=== PATIENT | female | born 1970 | race Hispanic/Latino ===

== ENCOUNTER 2018-04-03 15:03 | Outpatient (CLI) | payer OTHER | END 2018-04-03 15:04 | disposition home or self-care (01) | LOC: BICMAMMO 15:03 | PROVIDERS: ATTEND Family Medicine | DX: Z12.31 Encounter for screening mammogram for malignant neoplasm of breast (principal); R92.1 Mammographic calcification found on diagnostic imaging of breast; Z80.3 Family history of malignant neoplasm of breast | CPT/HCPCS: 77063; 77067 ==

== ENCOUNTER 2018-04-06 10:28 | Outpatient (CLI) | payer OTHER | END 2018-04-06 10:29 | disposition home or self-care (01) | LOC: BICMAMMO 10:28 | PROVIDERS: ATTEND Family Medicine | DX: R92.1 Mammographic calcification found on diagnostic imaging of breast (principal); Z80.3 Family history of malignant neoplasm of breast | CPT/HCPCS: G0279 ==

== ENCOUNTER 2020-12-08 12:58 | Observation (INO) | payer OTHER, SELFPAY ==
[2020-12-08 13:20] LABS: #Basophils 0.1 thou/uL (0.0-0.2); #Eosinphils 0.3 thou/uL (0.0-0.7); #Lymphocytes 2.5 thou/uL (1.20-3.40); #Monocytes 0.4 thou/uL (0.11-0.59); %Basophils 1.1 % (0.0-1.0); %Eosinophils 4.5 % (0.0-10.0); %Lymphocytes 40.2 % (21.0-51.0); %Monocytes 6.3 % (0.0-10.0); %Neutrophils 47.9 % (42.0-75.0); Hemoglobin 11.6 g/dL (12.0-16.0); Mean Corpuscular HGB CONC 32.1 g/dL (32.0-36.0); Mean Corpuscular Volume 87.2 fL (78.0-98.0); Mean Platelet Volume 7.9 fL (7.4-10.4); Platelet Count 261 thou/uL (130-400); RBC Distribution Width 12.6 % (11.5-14.5); Red Blood Cell (RBC) Count 4.14 mill/uL (4.20-5.40); White Blood Cell (WBC) Count 6.2 thou/uL (4.8-10.8)
[2020-12-08 13:26] LABS: PTT 27.6 sec (22.9-36.1)
[2020-12-08 13:28] LABS: Prothrombin Time 13.9 sec (12.0-14.7)
[2020-12-08 13:49] LABS: ALT (SGPT) 15 U/L (8-55); AST (SGOT) 24 U/L (5-34); Albumin 3.9 g/dL (3.5-5.0); Alkaline Phosphatase 49 U/L (40-110); Anion Gap 12 mmol/L (10-20); BUN (Urea Nitrogen) 9 mg/dL (9.8-20.1); Bilirubin, Total 0.5 mg/dL (0.2-1.2); CK (CPK) 153 U/L (29-168); Calc. Creatinine Clearance 0 mL/min (70-130); Calcium 9.2 mg/dL (7.8-10.44); Carbon Dioxide 25 mmol/L (22-29); Chloride 104 mmol/L (98-107); Globulin 3.2 g/dL (2.4-3.5); Glucose 104 mg/dL (70-105); Potassium 3.7 mmol/L (3.5-5.1); Protein, Total 7.1 g/dL (6.0-8.3); Sodium 137 mmol/L (136-145)
[2020-12-08] MEDS ORDERED: Aspirin Chewable 81 MG TAB ONE (15:34)
[2020-12-08] MEDS ORDERED: Ondansetron PF 4 MG/2 ML Vial IVP PRN (17:45)
[2020-12-08] MEDS ORDERED: Acetaminophen 325 MG TAB PO PRN (17:45)
[2020-12-08] MEDS ORDERED: Ondansetron ODT 4 MG TAB SL PRN (17:45)
[2020-12-08] MEDS ORDERED: hydrALAZINE 20 MG/ML VIAL SLOW IVP PRN (18:14)
[2020-12-08] MEDS ORDERED: Labetalol HCl 100 MG/20 ML VIAL SLOW IVP PRN (18:14)
[2020-12-08 19:29] VITALS: BMI 24.1
[2020-12-08] MEDS ORDERED: Atorvastatin Calcium 40 MG TAB PO SCH (21:00)
[2020-12-09 05:31] LABS: #Basophils 0.1 thou/uL (0.0-0.2); #Eosinphils 0.3 thou/uL (0.0-0.7); #Lymphocytes 1.8 thou/uL (1.20-3.40); #Monocytes 0.5 thou/uL (0.11-0.59); #Neutrophils 3.2 thou/uL (1.40-6.50); %Eosinophils 5.7 % (0.0-10.0); %Lymphocytes 31.1 % (21.0-51.0); %Monocytes 8.9 % (0.0-10.0); %Neutrophils 53.3 % (42.0-75.0); Hemoglobin 11.4 g/dL (12.0-16.0); Hemoglobin A1c 5.6 % (4.0-6.0); Mean Corpuscular HGB CONC 32.1 g/dL (32.0-36.0); Mean Corpuscular Hemoglobin 28.1 pg (27.0-31.0); Mean Corpuscular Volume 87.5 fL (78.0-98.0); Mean Platelet Volume 8.1 fL (7.4-10.4); Platelet Count 247 thou/uL (130-400); RBC Distribution Width 12.8 % (11.5-14.5); Red Blood Cell (RBC) Count 4.07 mill/uL (4.20-5.40); White Blood Cell (WBC) Count 5.9 thou/uL (4.8-10.8)
[2020-12-09 05:48] LABS: Anion Gap 10 mmol/L (10-20); BUN (Urea Nitrogen) 9 mg/dL (9.8-20.1); Calc. Creatinine Clearance 77 mL/min (70-130); Carbon Dioxide 26 mmol/L (22-29); Cardiac Risk 2.6 (Less than 4.5); Chloride 107 mmol/L (98-107); Cholesterol 185 mg/dl (< 200 Desired); Glucose 97 mg/dL (70-105); HDL Cholesterol 72 mg/dL (>60 Neg Risk); LDL Cholesterol, Calculated 102 mg/dL; Potassium 4.3 mmol/L (3.5-5.1); Sodium 139 mmol/L (136-145); Triglycerides 53 mg/dL (Less than 150)
[2020-12-09] MEDS ORDERED: Aspirin 81 mg Enteric Coated Tablet PO SCH (09:00)
[2020-12-09 12:03] VITALS: BP 117/82; TEMP 98.3
[2020-12-09 13:21] LABS: PTT 28.6 sec (22.9-36.1)
[2020-12-09 13:24] LABS: HEX PHOS LA Tube 1 41.6 SEC
[2020-12-09 13:26] LABS: Prothrombin Time 13.5 sec (12.0-14.7)
[2020-12-09 13:28] LABS: HEX PHOS LA Tube 2 40.2 SEC; Hexagonal Phospholipid Neut 1.4 SEC (0-8.0)
[2020-12-09 14:14] LABS: D-Dimer Test 0.27 *mcg/mL (0.27-0.43)
[2020-12-10 13:57] LABS: Factor VIII Test 247.6 % ACTIVE (56-157)
[2020-12-10 14:50] LABS: Protein C Activity 109 % (78-152)
[2020-12-12 17:21] LABS: Cardiolipin IgA Ab 3.4 APL-U/mL (<14 Negative); Cardiolipin IgG Ab 0.6 GPL-U/mL (<10 Negative); Cardiolipin IgM Ab 1.9 MPL-U/mL (<10 Negative); EliA APS New Method **** NEW METHOD ****
[2020-12-15 19:36] LABS: Activated Protein C Resistance 2.7 ratio (.)
== END 2020-12-09 19:59 | disposition home or self-care (01) ==
LOC: ERS 12:58 → SUATTDRO 12:58 → 2SE 16:10
PROVIDERS: ADMIT Emergency Medicine; ATTEND Emergency Medicine
DX: I63.9 Cerebral infarction, unspecified (principal); H53.461 Homonymous bilateral field defects, right side; E78.5 Hyperlipidemia, unspecified; D64.9 Anemia, unspecified; I10 Essential (primary) hypertension
CPT/HCPCS: 36415; 36416; 70450; 70551; 71045; 80048; 80053; 80061; 82550; 83036; 83090; 84484; 85025; 85240; 85300; 85303; 85305; 85307; 85379; 85598; 85610; 85730; 86147; 93005; 93306; 93880; G0378

== ENCOUNTER 2021-06-11 12:37 | Outpatient (CLI) | payer BC | END 2021-06-11 12:38 | disposition home or self-care (01) | LOC: CT 12:37 | PROVIDERS: ATTEND Student in an Organized Health Care Education/Training Program | DX: G44.84 Primary exertional headache (principal); I25.2 Old myocardial infarction | CPT/HCPCS: 70496 ==

== ENCOUNTER 2021-06-30 09:52 | Outpatient (CLI) | payer BC | END 2021-06-30 09:53 | disposition home or self-care (01) | LOC: BICMAMMO 09:52 | PROVIDERS: ATTEND Student in an Organized Health Care Education/Training Program | DX: Z12.31 Encounter for screening mammogram for malignant neoplasm of breast (principal) | CPT/HCPCS: 77063; 77067 ==

== ENCOUNTER 2023-02-15 15:03 | Outpatient (CLI) | payer BC | END 2023-02-15 15:04 | disposition home or self-care (01) | LOC: BICMAMMO 15:03 | PROVIDERS: ATTEND Student in an Organized Health Care Education/Training Program | DX: Z12.31 Encounter for screening mammogram for malignant neoplasm of breast (principal) | CPT/HCPCS: 77063; 77067 ==

== ENCOUNTER 2024-02-21 15:00 | Outpatient (CLI) | payer BC | END 2024-02-21 15:01 | disposition home or self-care (01) | LOC: BICMAMMO 15:00 | PROVIDERS: ATTEND Student in an Organized Health Care Education/Training Program | DX: Z12.31 Encounter for screening mammogram for malignant neoplasm of breast (principal) | CPT/HCPCS: 77063; 77067 ==

== ENCOUNTER 2024-03-01 12:09 | Outpatient (CLI) | payer BC | END 2024-03-01 12:10 | disposition home or self-care (01) | LOC: BICULT 12:09 | PROVIDERS: ATTEND Student in an Organized Health Care Education/Training Program | DX: R10.11 Right upper quadrant pain (principal) | CPT/HCPCS: 76705 ==